=== PATIENT | male | born 1985 | race Caucasian/White ===

== ENCOUNTER → 2020-10-22 | Outpatient (CLI) | payer OTHER ==
[2020-10-23 03:01] LABS: African American GFR (CKD) 128.7 (60.0-200.0); Potassium 4.4 mmol/L (3.5-5.5)
== END | disposition home or self-care (01) ==
LOC: LABWHC1 16:08
PROVIDERS: ATTEND Family Medicine
DX: N18.9 Chronic kidney disease, unspecified (principal)
CPT/HCPCS: 36415; 80051; 82306; 82565; 83970; 84520